=== PATIENT | female | born 1955 | race Two or more races ===

== ENCOUNTER → 2020-05-21 | Outpatient (CLI) | payer OTHER | END | disposition home or self-care (01) | LOC: OFIC 805 11:00 | PROVIDERS: ATTEND Otolaryngology Otology & Neurotology | DX: H91.22 Sudden idiopathic hearing loss, left ear (principal); H93.12 Tinnitus, left ear ==

== ENCOUNTER → 2020-05-24 | Outpatient (CLI) | payer OTHER | END | disposition home or self-care (01) | LOC: OFIC 805 11:15 | PROVIDERS: ATTEND Otolaryngology Otology & Neurotology | DX: H91.22 Sudden idiopathic hearing loss, left ear (principal); H93.12 Tinnitus, left ear; H83.02 Labyrinthitis, left ear ==